=== PATIENT | female | born 1955 | race Caucasian/White ===

== ENCOUNTER 2018-09-15 07:11 | Day surgery (SDC) | payer OTHER ==
[~2018-09-15] VITALS: Ht 165.1 cm; Wt 95.2 kg
--- NOTE | 2018-09-15 08:31 | PREAC ---
Date/Time of Note Date/Time of Note DATE: 09/15/18 TIME: 08:30 Anesthesia Eval and Record Evaluation Time Pre-Procedure Interview DATE: 09/15/18 TIME: 08:30 Age 62 Sex female NPO: 8 hrs Preoperative diagnosis ABDOMINAL PAIN, CHANGE IN BOWEL HABITS Planned procedure EGD, COLONOSCOPY WITH BIOPSIES Past Medical History Past Medical History: Includes Cardio: HTN Endo: Diabetes GI: Obesity Surgery & Anesthesia Issues No known issue Meds Anticoagulation: No Beta Najma within 24 hr: No Reason Beta Najma not given: Pt. not on B-Najma Meds reviewed: Yes Allergies Allergies Reviewed: Yes Labs/Studies Labs Reviewed: Reviewed by anesthesiologist test: N/A Pre-procedure Exam Airway: Adequate mouth opening, Adequate thyromental dist Mallampati: Mallampati II Teeth: Normal Lung: Normal Heart: Normal ASA Physical Status ASA physical status: 2 Emergency: None Planned Anesthetic General/MAC: MAC Planned Pain Management Parenteral pain med Pre-operative Attestations Prior to commencing anesthesia and surgery, the patient was re-evaluated, there was verification of: *The patient's identity *The results of appropriate recent lab work and preoperative vital signs *The above evaluation not changing prior to induction *Anesthetic plan, risk benefits, alternative and complications discussed with patient/family; questions answered; patient/family understands, accepts and wishes to proceed. Melvin Ballesteros M.D. September 15, 2018 08:31
[2018-09-15] MEDS ORDERED: PROPOFOL 60 ML ONE (08:32)
[2018-09-15] MEDS ORDERED: LIDOCAINE 100 MG SYRINGE ONE (08:32)
[2018-09-15] MEDS ORDERED: FENTAnyl 50 MCG/ML VIAL ONE (08:32)
[2018-09-15] MEDS ORDERED: CHLORTHALIDONE (08:44)
[2018-09-15 08:51] VITALS: BP 142/65; PULSE 47; RESP 16
[2018-09-15 08:52] VITALS: Ht 165.1 cm; Wt 95.2 kg
--- NOTE | 2018-09-15 09:17 | PAC ---
Date/Time of Note Date/Time of Note DATE: 09/15/18 TIME: 09:17 Post-Anesthesia Notes Post-Anesthesia Note Last documented vital signs HR 78 RR 14 BP 114/74 T 98.4 Activity: WNL Respiratory function: WNL Cardiovascular function: WNL Mental status: Baseline Pain reasonably controlled: Yes Hydration appropriate: Yes Nausea/Vomiting absent: Yes Melvin Ballesteros M.D. September 15, 2018 09:17
[2018-09-15 09:28] VITALS: BP 137/64; PULSE 54; RESP 16
[2018-09-15 09:44] VITALS: BP 129/61; RESP 18
== END 2018-09-15 11:37 | disposition home or self-care (01) ==
LOC: GIL 07:11
PROVIDERS: ATTEND Internal Medicine Gastroenterology
DX: R19.4 Change in bowel habit (principal); K29.50 Unspecified chronic gastritis without bleeding; K64.8 Other hemorrhoids; K57.30 Diverticulosis of large intestine without perforation or abscess without bleeding; I10 Essential (primary) hypertension; E11.9 Type 2 diabetes mellitus without complications
CPT/HCPCS: 43239; 45378; 82962; 88305; 88312; J2001; J3010; Z7610